=== PATIENT | female | born 1960 | race Hispanic/Latino ===

== ENCOUNTER → 2018-03-24 | Day surgery (SDC) | payer MEDICARE, MEDICAID ==
[~2018-03-24] MED LIST: ALBUTEROL SUL0.083 % IN; AMLODIPINE10 MG PO; ASPIRIN325 MG PO; GLIPIZIDE5 MG PO; ISOSORB DIN10 MG PO; LEVOTHYROXIN100 MCG PO; LOSARTAN POT50 MG PO; METFORMIN500 MG PO; METOPROL TAR25 MG PO; OMEPRAZOLE20 M2 PO; PRAVACHOL20 MG PO; [UNRECOGNIZED DRUG - OTHER]
[2018-03-24 16:17] VITALS: BP 145/85
== END | disposition home or self-care (01) ==
LOC: ENDO 11:46 → ORM 16:55
PROVIDERS: ATTEND Internal Medicine Gastroenterology
PROC: 0DB48ZX Excision of Esophagogastric Junction, Via Natural or Artificial Opening Endoscopic, Diagnostic (ICD-10-PCS; principal; 2018-03-24)
PROC: 0D758ZZ Dilation of Esophagus, Via Natural or Artificial Opening Endoscopic (ICD-10-PCS; 2018-03-24)
DX: K22.2 Esophageal obstruction (principal); K21.9 Gastro-esophageal reflux disease without esophagitis; K44.9 Diaphragmatic hernia without obstruction or gangrene; R14.0 Abdominal distension (gaseous); K83.8 Other specified diseases of biliary tract; K83.1 Obstruction of bile duct; K29.70 Gastritis, unspecified, without bleeding; K57.30 Diverticulosis of large intestine without perforation or abscess without bleeding; K64.8 Other hemorrhoids; K59.00 Constipation, unspecified; E11.9 Type 2 diabetes mellitus without complications; E03.9 Hypothyroidism, unspecified; Z86.010 Personal history of colon polyps